=== PATIENT | female | born 1970 | race Caucasian/White ===

== ENCOUNTER 2020-10-17 20:49 | Emergency (ER) | payer OTHER ==
[~2020-10-17 20:49] MED LIST: CITALOPRAM HBR20 MG PO; CLARITIN10 MG PO; HCTZ25 MG PO; KEFLEX500 MG PO; PREDNISONE 20MG20 MG PO
[2020-10-17 22:06] LABS: BASOPHIL 0.8 % (0-2); EOSINOPHIL 2.3 % (0-5); HCT 34.5 % (37.0-47.0); HGB 11.7 g/dl (12.5-16.0); LYMPHOCYTE 28.9 % (15-48); MCH 31.6 pg (25.0-31.0); MCHC 33.9 g/dL (32.0-36.0); MCV 93.2 fL (78.0-100.0); MONOCYTE 6.2 % (0-12); MPV 9.5 fL (6.0-9.5); NEUTROPHIL 61.6 % (41-80); NRBC 0; PLT 292 K/uL (150-400); RDW 11.3 % (11.5-14.0); WBC 8.7 K/uL (4.0-10.5)
[2020-10-17 22:37] LABS: ALBUMIN 3.7 g/dL (3.4-5.0); BILIRUBIN - TOTAL 0.3 mg/dL (0.2-1.0); BUN/CREAT RATIO (CALC) 22.4 RATIO; CREATININE 0.67 mg/dL (0.51-0.95); GLOBULIN (CALCULATION) 3.3 g/dL
[2020-10-18] MEDS ORDERED: K-DUR20 MEQ PO (00:24)
== END 2020-10-18 01:00 | disposition home or self-care (01) ==
LOC: FER 20:49
PROVIDERS: Emergency Medicine
DX: R07.89 Other chest pain (principal); E87.6 Hypokalemia; I10 Essential (primary) hypertension; Z79.899 Other long term (current) drug therapy
CPT/HCPCS: 36415; 71046; 80053; 84443; 84484; 85025; 93005

== ENCOUNTER 2021-03-29 13:37 | Emergency (ER) | payer OTHER ==
[~2021-03-29 13:37] MED LIST changes: +K-DUR20 MEQ PO
[2021-03-29 15:08] LABS: INFLUENZA A NAA NEGATIVE (NEGATIVE)
[2021-03-29 15:13] LABS: CORONAVIRUS 2019 SARS-COV-2 POSITIVE (NEGATIVE)
== END 2021-03-29 15:50 | disposition home or self-care (01) ==
LOC: FER 13:37
PROVIDERS: Nurse Practitioner Family
DX: U07.1 COVID-19 (principal); I10 Essential (primary) hypertension
CPT/HCPCS: 99284; U0002